=== PATIENT | male | born 1980 | race Caucasian/White ===

== ENCOUNTER 2018-02-01 11:45 | Emergency (ER) | payer BC ==
[~2018-02-01] VITALS: Ht 180.3 cm; Wt 85.7 kg
[2018-02-01] MEDS ORDERED: OMEPRAZOLE20 MG PO (12:10)
[2018-02-01] MEDS ORDERED: ZOFRAN ODT4 MG PO (15:13)
[2018-02-01] MEDS ORDERED: OMEPRAZOLE40 MG PO (15:13)
== END 2018-02-01 15:23 | disposition home or self-care (01) ==
LOC: ED 11:45
DX: K20.9 Esophagitis, unspecified (principal); Z79.899 Other long term (current) drug therapy
CPT/HCPCS: 74177; 80053; 83690; 85025; 96374; 96375; 99284; J2405; J7030; Q9967

== ENCOUNTER 2022-04-11 18:12 | Emergency (ER) | payer OTHER ==
[~2022-04-11] VITALS: Ht 180.3 cm; Wt 88.5 kg
[~2022-04-11 18:12] MED LIST: OMEPRAZOLE20 MG PO; OMEPRAZOLE40 MG PO; ZOFRAN ODT4 MG PO
[2022-04-11] MEDS ORDERED: LISINOPRIL10 MG PO (18:48)
[2022-04-11] MEDS ORDERED: ZYRTEC10 M3 PO (18:49)
[2022-04-11] MEDS ORDERED: BENADRYL25 MG PO (18:49)
== END 2022-04-11 21:07 | disposition home or self-care (01) ==
LOC: ED 18:12
DX: K92.1 Melena (principal); Z79.899 Other long term (current) drug therapy
CPT/HCPCS: 36415; 80053; 81001; 83690; 83735; 85025; 87045; 99284

== ENCOUNTER 2023-08-17 21:15 | Emergency (ER) | payer OTHER ==
[~2023-08-17] VITALS: Ht 180.3 cm; Wt 88.5 kg
[~2023-08-17 21:15] MED LIST changes: +BENADRYL25 MG PO; +LISINOPRIL10 MG PO; +ZYRTEC10 M3 PO
[2023-08-17] MEDS ORDERED: MELOXICAM15 MG PO (22:00)
[2023-08-17 22:20] VITALS: BP 98/62
== END 2023-08-17 22:15 | disposition home or self-care (01) ==
LOC: ED 21:15
DX: S63.91XA Sprain of unspecified part of right wrist and hand, initial encounter (principal); W01.0XXA Fall on same level from slipping, tripping and stumbling without subsequent striking against object, initial encounter; I10 Essential (primary) hypertension; K21.9 Gastro-esophageal reflux disease without esophagitis; Z79.899 Other long term (current) drug therapy
CPT/HCPCS: 73130; A9270